=== PATIENT | male | born 1950 | race Caucasian/White ===

== ENCOUNTER 2016-10-01 21:00 | Inpatient (IN) | payer BC, MEDICAID ==
[~2016-10-01] VITALS: Ht 177.8 cm; Wt 99.4 kg
[2016-10-01 21:47] LABS: ADD SCAN DIFF NO
[2016-10-01 21:50] LABS: BASOPHILS % 0.7 % (0.0-2.0); EOSINOPHILS # 0.2 10^3/ul (0.0-0.5); EOSINOPHILS % 2.8 % (0.0-7.0); HEMATOCRIT 36.4 % (42.0-52.0); HEMOGLOBIN 13.1 g/dl (14.0-18.0); LYMPHOCYTES # 2.3 10^3/ul (0.8-2.9); LYMPHOCYTES % 41.6 % (15.0-51.0); MEAN CORPUSCULAR VOLUME 88.8 fl (82.0-101.0); MONOCYTE # 0.5 10^3/ul (0.3-0.9); MONOCYTES % 9.6 % (0.0-11.0); NEUTROPHIL # 2.5 10^3/ul (1.6-7.5); NEUTROPHILS % 45.1 % (39.0-77.0); PLATELET COUNT 213 10^3/UL (140-415); RED CELL DISTRIBUTION WIDTH 13.3 % (11.5-14.5); WHITE BLOOD COUNT 5.6 10^3/ul (4.8-10.8)
[2016-10-01] MEDS ORDERED: LEVO75TA5 PO (21:59)
[2016-10-01] MEDS ORDERED: NITROGLYCERIN (SL) 0.4 MG TAB SL ONE (22:00)
[2016-10-01] MEDS ORDERED: CLOPIDOGREL 75 MG TAB PO ONE (22:00)
[2016-10-01 22:19] LABS: ALANINE AMINOTRANSFERASE 55 IU/L (13-69); ALBUMIN 4.8 g/dl (3.3-4.9); ALKALINE PHOSPHATASE 53 IU/L (42-121); ANION GAP 20 (8-16); ASPARTATE AMINO TRANSFERASE 27 IU/L (15-46); BILIRUBIN,INDIRECT 0.3 mg/dl (0-1.1); BILIRUBIN,TOTAL 0.3 mg/dl (0.2-1.3); BLOOD UREA NITROGEN 13 mg/dl (7-20); CALCIUM 9.5 mg/dl (8.4-10.2); CARBON DIOXIDE 27 mmol/L (21-31); CHLORIDE 99 mmol/L (97-110); CREATININE 0.77 mg/dl (0.61-1.24); GLUCOSE 148 mg/dl (70-220); POTASSIUM 3.8 mmol/L (3.5-5.1); SODIUM 142 mmol/L (135-144); TOTAL PROTEIN 7.2 g/dl (6.1-8.1)
--- NOTE | 2016-10-01 22:24 | ERA ---
ER Documentation Chief Complaint Date/Time DATE: 10/01/16 TIME: 22:19 Chief Complaint CP started 30 mins ago, diaphoretic HPI 66-year-old man brought in by family members for pressure-like intermittent chest pain for the last 4 days. Patient states he has had 15-20 minute episodes of chest pain throughout the day pressure-like nonradiating. He denies previous episodes. Patient denies cough, no shortness of breath, no calf or leg swelling, no headache or blurry vision. ROS All systems reviewed and are negative except as per history of present illness. Medications Home Meds Reported Medications Levothyroxine Sodium* (Levothyroxine Sodium*) 75 Mcg Tablet, 75 MCG PO BEFORE BREAKFAST, #30 TAB 10/01/16 Allergies Allergies: Coded Allergies: aspirin (Verified Allergy, Unknown, anaphalaxis, 10/01/16) PMhx/Soc Hypothyroidism, hypertension, prediabetic History of Surgery: Yes (NOSE ) Anesthesia Reaction: No Hx Neurological Disorder: No Hx Respiratory Disorders: No Hx Cardiac Disorders: Yes (HTN ) Hx Psychiatric Problems: No Hx Miscellaneous Medical Probl: Yes (HYPOTHYROIDISM) Hx Alcohol Use: No Hx Substance Use: No Hx Tobacco Use: No Smoking Status: Never smoker FmHx Family History: diabetes Physical Exam Vitals Vital Signs Date Time Temp Pulse Resp B/P Pulse Ox O2 Delivery O2 Flow Rate FiO2 10/01/16 21:30 72 16 138/89 96 Room Air 10/01/16 21:08 98.3 64 24 127/80 98 Physical Exam GENERAL: Well-developed, well-nourished, well-hydrated, in no apparent distress , looks nontoxic in appearance HEENT: Moist mucous membranes, pink conjunctiva, no cervical spine tenderness or step-off deformities, no goiter, no jaundice or icterus, extraocular movements intact without pain. No submandibular induration, and no pharyngeal erythema NEURO: Alert and oriented 3, cranial nerves II through XII intact bilaterally, pupils equal round reactive to light, no focal deficits or facial asymmetry, sensation intact distally Strength 5/5 in upper and lower extremities bilaterally CARDIAC: Regular rate and rhythm, no murmurs rubs or gallops LUNGS: Clear bilaterally no wheezing crackles or stridor ABDOMEN: Soft nontender, no guarding, no rigidity, no rebound, no psoas sign no obturator sign. Normoactive bowel sounds SKIN: Warm and dry to touch, no abrasions, contusions, or hematomas, no lacerations, no ecchymosis, no target lesions, and without ulcers EXTREMITIES: No clubbing cyanosis or edema, calves are bilaterally symmetrical, no Homans sign, no popliteal cord sign. Distal pulses equal and bilateral PSYCH: Normal affect without agitation or irritability Result Diagram: 10/01/16212310/01/162123 Results 24 hrs Laboratory Tests Test 10/01/16 21:24 10/01/16 22:00 White Blood Count 5.610^3/ul Red Blood Count 4.1010^6/ul Hemoglobin 13.1g/dl Hematocrit 36.4% Mean Corpuscular Volume 88.8fl Mean Corpuscular Hemoglobin 32.0pg Mean Corpuscular Hemoglobin Concent 36.0g/dl Red Cell Distribution Width 13.3% Platelet Count 01449^3/UL Mean Platelet Volume 9.0fl Neutrophils % 45.1% Lymphocytes % 41.6% Monocytes % 9.6% Eosinophils % 2.8% Basophils % 0.7% Nucleated Red Blood Cells % 0.0/100WBC Neutrophils # 2.510^3/ul Lymphocytes # 2.310^3/ul Monocytes # 0.510^3/ul Eosinophils # 0.210^3/ul Basophils # 0.010^3/ul Nucleated Red Blood Cells # 0.010^3/ul Sodium Level 142mmol/L Potassium Level 3.8mmol/L Chloride Level 99mmol/L Carbon Dioxide Level 27mmol/L Anion Gap 20 Blood Urea Nitrogen 13mg/dl Creatinine 0.77mg/dl Glucose Level 148mg/dl Calcium Level 9.5mg/dl Total Bilirubin 0.3mg/dl Direct Bilirubin 0.00mg/dl Indirect Bilirubin 0.3mg/dl Aspartate Amino Transf (AST/SGOT) 27IU/L Alanine Aminotransferase (ALT/SGPT) 55IU/L Alkaline Phosphatase 53IU/L Troponin I Pending Total Protein 7.2g/dl Albumin 4.8g/dl Globulin 2.40g/dl Albumin/Globulin Ratio 2.00 Lipase 110U/L B-Type Natriuretic Peptide 28PG/ML Current Medications Medications (Trade) Dose Ordered Sig/Lloyd Route PRN Reason Start Time Stop Time Status Last Admin Dose Admin Clopidogrel Bisulfate (plaVIX) 300 mg ONCE ONCE PO 10/01/16 22:00 10/01/16 22:01 DC 10/01/16 21:38 Nitroglycerin (Nitroglycerin (Sl Tab) 0.4 Mg) 1 tab ONCE ONCE SL 10/01/16 22:00 10/01/16 22:01 DC 10/01/16 21:36 Procedures/MDM IV line was established patient was placed on cardiac exercise physiologist rhythm strip revealed a sinus rhythm at about 70 bpm with upright P and T waves. Patient was afebrile. EKG performed, read by me revealed a normal sinus rhythm at 79 bpm, normal axis with a first-degree atrial ventricular block and a CA interval of 210 ms, normal axis, narrow QRS complex, no concerning ST elevations or depressions noted. Chest X-ray 1V Interpreted by me: Soft Tissue: No acute abnormalities Bones: No acute abnormalities Mediastinum/Cardiac Silhouette/Lungs: No acute abnormalities CBC was normal, electrolytes normal, liver function tests normal, troponin negative Patient was allergic to aspirin so I administered clopidogrel 300 mg p.o. for cardioprotective measures. Patient also received nitroglycerin 0.4 mg sublingual. Patient will be admitted to telemetry setting for continued medical and cardiology management. Departure Diagnosis: Primary Impression: Chest pain Qualified Code: R07.9 - Chest pain, unspecified type Additional Impression: Hypertension Qualified Code: I10 - Essential hypertension Condition: ROMA Torres MD Oct 01, 2016 22:23
[2016-10-01 22:33] LABS: TROPONIN-I < 0.012 ng/ml (0.00-0.12)
--- NOTE | 2016-10-01 22:44 | RADRPT ---
PROCEDURE: XR Chest. CLINICAL INDICATION: Abdomen pain. TECHNIQUE: Single frontal view. COMPARISON: None. FINDINGS: The lungs are clear. The heart size is normal. There is calcification in the aorta consistent with atherosclerosis. There is no pleural effusion. There is no pneumothorax. IMPRESSION: 1. Atherosclerosis. 2. Clear lungs. RPTAT: QQ .Ronnie Cote MD, MD Date Time Electronically viewed and signed by .Ronnie Cote MD, MD on 10/01/2016 22:43 .R/
[2016-10-01 23:45] VITALS: TEMP 98.5
[2016-10-02 00:20] VITALS: BP 116/70; RESP 20
[2016-10-02 00:34] VITALS: Ht 177.8 cm; Wt 99.4 kg
[2016-10-02] MEDS ORDERED: ZOLPIDEM 5 MG TAB PO PRN (02:00)
[2016-10-02] MEDS ORDERED: NITROGLYCERIN (SL) 0.4 MG TAB SL PRN (02:00)
[2016-10-02] MEDS ORDERED: ACETAMINOPHEN 325 MG TAB PO PRN (02:00)
[2016-10-02 03:53] VITALS: BP 138/65; RESP 19
[2016-10-02 04:00] VITALS: PULSE 69
[2016-10-02 04:26] LABS: CHOL/HDL RATIO 5.2 RATIO
[2016-10-02] MEDS ORDERED: LEVOTHYROXINE 75 MCG TAB PO SCH (07:00)
[2016-10-02 07:49] VITALS: BP 132/75; RESP 18
[2016-10-02 08:14] VITALS: PULSE 62
[2016-10-02] MEDS ORDERED: CLOPIDOGREL 75 MG TAB PO SCH (09:00)
[2016-10-02] MEDS ORDERED: ENOXAPARIN 40 MG/0.4 ML SYG SC SCH (09:00)
[2016-10-02] MEDS ORDERED: ASPIRIN 325 MG TAB PO SCH (09:00)
--- NOTE | 2016-10-02 09:24 | RADRPT ---
Vent Rate: 63 bpm RR Interval: 0 msec MA Interval: 222 msec QRS Duration: 84 msec QT Interval: 390 msec QTC Interval: 399 msec P-R-T [place]: 62 - 54 - 57 degrees Sinus rhythm with 1st degree AV block Otherwise normal ECG Electronically Signed By: Jada Belcher [id number]
== END 2016-10-02 09:30 | disposition left against medical advice (07) | DRG 313 ==
LOC: E/R 21:00 → MS4 22:27
PROVIDERS: ADMIT Internal Medicine; ATTEND Internal Medicine
DX: R07.9 Chest pain, unspecified (principal); I10 Essential (primary) hypertension
CPT/HCPCS: 36415; 71010; 80053; 80061; 83690; 83880; 84484; 85025; 93005; J1650